=== PATIENT | male | born 1970 | race Caucasian/White ===

== ENCOUNTER 2017-12-20 20:44 | Emergency (ER) | payer OTHER ==
[~2017-12-20] VITALS: Ht 182.8 cm; Wt 90.7 kg
[~2017-12-20 20:44] MED LIST: MOTRIN800 MG PO
[2017-12-20] MEDS ORDERED: SEPTDS PO (21:16)
== END 2017-12-20 21:30 | disposition home or self-care (01) ==
LOC: ED 20:44
DX: L02.414 Cutaneous abscess of left upper limb (principal); Z79.899 Other long term (current) drug therapy